=== PATIENT | female | born 1990 | race Two or more races ===

== ENCOUNTER 2018-10-29 20:02 | Emergency (ER) | payer MEDICAID ==
--- NOTE | 2018-10-29 20:17 | EDPHY ---
H & P Stated Complaint: Brown/Green Vaginal Discharge, 10 weeks Time Seen by Provider: 10/29/18 20:11 HPI/ROS: CHIEF COMPLAINT: Abdominal pain, cramping, vaginal discharge HISTORY OF PRESENT ILLNESS: 28-year-old female TAB1 SAB 1, currently 10 weeks , complaining of new onset lower abdominal cramping and unusual brown green vaginal discharge since this evening. No passage of clots. No fever or chills. No urinary abnormality. No chest pain. No dyspnea. No trauma or fall. No flu-like symptoms. REVIEW OF SYSTEMS: 10 systems reviewed and negative with the exception of the elements mentioned in the history of present illness PAST MEDICAL & SURGICAL HISTORY: TAB1 SAB 1, currently 10 weeks SOCIAL HISTORY: Nonsmoker PHYSICAL EXAM (Prior to examination, patient consented to physical exam, hands were washed and my usual and customary physical exam procedures followed) 1) GENERAL: Well-developed, well-nourished, alert and oriented. Appears to be in no acute distress. 2) HEAD: Normocephalic, atraumatic 3) HEENT: Pupils equal, round, reactive to light bilaterally. Sclera anicteric. 4) NECK: Full range of motion, no meningeal signs. 5) LUNGS: Clear auscultation bilaterally, no wheezes, no rhonchi, no retractions. 6) HEART: Regular rate and rhythm, no murmur, no heave, no gallop. 7) ABDOMEN: No guarding, no rebound, no focal tenderness, negative McBurney's, negative Gilmore's, negative Rovsing's, negative peritoneal sign, I am unable to elicit any abdominal pain on exam 8) MUSCULOSKELETAL: Moving all extremities, no focal areas of tenderness, no obvious trauma. No peripheral edema or discoloration. 9) BACK: No CVA tenderness, no midline vertebral tenderness, no fluctuance, no step-off, no obvious trauma, no visual or palpable abnormality. 10) SKIN: No rash, no petechiae. 11) Psychiatric: Patient is oriented X 3, there is no agitation. DIFFERENTIAL DIAGNOSIS: In no particular order including but not limited to threatened , complete , ectopic - Personal History LMP (Females 10-55): Current Tetanus Diphtheria and Acellular Pertussis (TDAP): Yes - Medical/Surgical History Hx Asthma: No Hx Chronic Respiratory Disease: No Hx Diabetes: No Hx Cardiac Disease: No Hx Renal Disease: No Hx Cirrhosis: No Hx Alcoholism: No Hx HIV/AIDS: No Hx Splenectomy or Spleen Trauma: No Other PMH: , overian cyst, Hep A - Social History Smoking Status: Never smoked Constitutional: Initial Vital Signs Temperature (C) 36.8 C 10/29/18 20:05 Heart Rate 84 10/29/18 20:05 Respiratory Rate 18 10/29/18 20:05 Blood Pressure 136/75 H 10/29/18 20:05 O2 Sat (%) 99 10/29/18 20:05 O2 Delivery Mode Room Air Allergies/Adverse Reactions: No Known Allergies Allergy (Verified 10/29/18 20:09) Home Medications: Medication Instructions Recorded NK [No Known Home Meds] 10/29/18 Medical Decision Making ED Course/Re-evaluation: 8:17 p.m.: I have evaluated the patient. Will obtain laboratory studies including Rh, urinalysis, quantitative HCG as well as pelvic ultrasound. Care of patient under supervision of secondary supervising physician Dr Bella with whom I discussed case. 9:43 p.m.: Re-evaluation. Rh positive. No bacteriuria on urinalysis. Discussed her imaging studies showing subchorionic hemorrhage, intrauterine . I recommended pelvic exam which she declines. She has her 1st OBGYN appointment next week (today is Saturday) and she prefers to have any pelvic examination performed at that time. Plan will be discharged with my usual and customary threatened precautions. She feels comfortable being discharged. Care of patient under supervision of secondary supervising physician Dr Bella with whom I discussed case. - Data Points Laboratory Results: Laboratory Results 10/29/18 20:22 10/29/18 20:22 Departure - Departure Disposition: Home, Routine, Self-Care Clinical Impression: Threatened Condition: Good Instructions: Threatened Miscarriage (ED) Additional Instructions: Return to the ER if you develop new or worsening abdominal pain, if you develop an increase in vaginal bleeding, passage of clots or any other symptoms that concern you Referrals: Mayte Bassett DO [Doctor of Osteopathy] - 2-3 days, call for appt. (You may also follow up with your own OBGYN)
[2018-10-29 20:36] LABS: PLATELET COUNT 242 10^3/uL (150-400)
[2018-10-29 22:05] VITALS: BP 128/71
== END 2018-10-29 22:04 | disposition home or self-care (01) ==
DX: O20.0 Threatened abortion (principal); Z3A.10 10 weeks gestation of pregnancy